=== PATIENT | female | born 1960 | race Caucasian/White ===

== ENCOUNTER 2024-11-09 12:38 | Outpatient (REF) | payer MEDICARE, SELFPAY ==
--- OUTSIDE RECORDS SUMMARY | 2020-01-03 20:00 | XMS_ITS | Continuity of Care Document ---
Author Organization [facility] Address [address] [address] [place] [address] Phone Care Team Providers Care Bereavement Counselor Name Role Phone TereElvira zayas OD Unavailable Unavailable Allergies, Adverse Reactions, Alerts Substance Reaction Status Criticality codeine Active No Information Medications Medication Instructions Dosage Effective Dates (start - stop) Status Comments baclofen 10 mg tablet Take 10 mg by mout h 3 times daily. - Active cyclobenzaprine 10 mg tablet Take 10 mg by mouth 3 times daily as needed for Muscle Spasms. - Active ergocalciferol (vitamin D2) 1,250 mcg (50,000 unit) capsule Take 50,000 Units by mouth once a week. - Active ibuprofen 400 mg tablet Take 400 mg by m outh every 6 hours as needed. - Active Procedures Procedure Date Comprehensive eye exam, new patient Determination of refractive state Advance Directives Directive Yes / No Effective Date File Name No Information Encounters Encounter Description Practice Location Reason(s) For Visit Diagnoses Date Provider Providers Copied on Encounter [facility], [address] [address], [place], [place], [id number], [place] tel:[phone] [facility] No Information Renea Felix. [address], [address], [place], [place], [id number], [place]. tel:[phone] Referring Provider: Elvira Meier, [address], [place], [address] . tel:[phone] [facility], [address] [address], [place], [place], [id number], tel:[phone] [facility] The patient is here for an ocular health exam (chief complaint) Examination of eyes and vision with abnormal findings Z01.01Bilater al nuclear sclerosis cataract H25.13Keratoc onjunct sicca, not specified as Sjogren's, bilateral H16.223Presby opia H52.4 Renea Felix. [address], [address], [facility], [place], [id number], . tel:[phone] Referring Provider: Elvira Meier, [address], [place], [address] . tel:[phone] Family History Family Member Type Diagnosis Age At Onset Problem (finding) No relevant family hist ory Payers Payer name Insurance type Covered republican ID Authoriza tion(s) No Information Social History Type Description Quantity Date Captured Comments Sex Female Smoking Status No Information Chief Complaint And Reason For Visit No Information Reason For Referral Reason For Referral No Information History Of Present Illness Encounter Date Complaint History Of Prese nt Illness The patient is here for an ocular health exam The patient is here for an ocular health exam. Patient states that her vision has been blurry in both eyes. She felt that is has gradually been getting worse over the past year. She felt that the vision got worse while on Hydroxychloroquine (was on it for 6 months) for arthritis. Patient states that she has trouble seeing up close with her current glasses, she states that she has to put OTC readers on over her glasses. Patient states that she has used clear eyes to help with dryness. Functional Status Date Functional Assessmen t No Information Instructions Date Instruction Additional Infor kallie - Released updated g lasses prescription. Related to Presbyopia H52.4 - Patient educated o n condition and its effect on oculo-visual comfort including irritation, tearing and vision fluctuation. This is a chronic condition and requires continued maintenance therapy. START: Lubricant eye drops 4 x day in both eyes (non-prescription: Refresh, Systane, Genteal, Soothe or TheraTears). Avoid redness-relief drops.START: warm compresses 1-2 x day for both eyes for 5-10 minutes. Related to Keratoconjunct sicca, not specified as Sjogren's, bilateral H16.223 - Patient counseled on findings. No treatment currently recommended due to visual acuity function level. Patient will monitor vision changes and contact us with any decrease in vision, will re-evaluate cataract on return visit. 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 Recommend eye exams with dilation and updating glasses as necessary. Related to Examination of eyes and vision with abnormal findings Z01.01 Assessments Type Assessment Date No Information Patient Care Teams Name Effective Dates (start - stop) Status Members No Information
--- OUTSIDE RECORDS SUMMARY | 2024-11-09 12:40 | XMS_ITS | Clinical Summary ---
Author Organization [facility] Address [address] [place] [address] Care Team Providers Care Production Supply Equipment Tender Name Role Phone Bria Call DO Primary Care Provider [phone] Allergies No known active allergies Medications Medication Sig Dispensed Refills Start Date End Date Status cyclobenzaprine (FLEXERIL) 10 MG tablet Take 1 tablet (10 mg total) by mouth daily. 0 Active atorvastatin (LIPITOR) tablet 40 mg Take 1 tablet (40 mg total) by mouth daily. 0 Active aspirin EC 81 MG tablet Take 1 tablet (81 mg total) by mouth daily. 0 Active gabapentin (NEURONTIN) 300 MG capsule Take 1 capsule (300 mg total) by mouth 2 (two) times a day. 0 Active ibuprofen 200 MG tablet Take 1 tablet (200 mg total) by mouth every 6 (six) hours as needed for pain. 0 Active Active Problems Problem Noted Date Diagnosed Date Thrombocytosis 08/06/2021 Social History Tobacco Use Types Packs/Day Years Used Date Smoking Tobacco: Never Assessed Sex and Gender Information Value Date Recorded Sex Assigned at Not on file Gender Identity Not on file Sexual Orientation Not on file Job Start Date Occupation Industry Not on file Not on file Not on file Last Filed Vital Signs Vital Sign Reading Time Taken Comments Blood Pressure 139/60 02/10/2024 8:59 AM EDT Pulse 75 02/10/2024 8:59 AM EDT Temperature 36.2 C (97.2 F) 02/10/2024 8:59 AM EDT Respiratory Rate - - Oxygen Saturation 95% 02/10/2024 8:59 AM EDT Inhaled Oxygen Concentration - - Weight 60.3 kg (133 lb) 02/10/2024 8:59 AM EDT Height 162.6 cm (5' 4 ) 02/10/2024 8:59 AM EDT Body Mass Index 22.83 02/10/2024 8:59 AM EDT Plan of Treatment Health Maintenance Due Date Last Done Comments Hepatitis C Screening 1960 Depression Screening 1972 BMI Counseling 1978 Preventative Health Evaluation 1978 Cervical Cancer Screening (Pap Smear) 1981 Colon Cancer Screening (Colonoscopy) 2005 Breast Cancer Screening (Mammogram) 2010 Shingrix-Zoster Vaccine (1 o f 2) 2010 COVID-19 Vaccine (3 - 2023-2 5 season) 2023 08/23/2020, 08/02/2020 Influenza Vaccine (#1) 2024 , 02/23/2022 DTap / Tdap / Td (2 - Td or Tdap) 02/24/2032 02/23/2022 RSV Adult > 60+ Yrs or (1 - 1-dose 75+ series) 11/26/2035 Pneumococcal Vaccine Aged Out 08/30/2022 No long er eligible based on patient's age to complete this topic Hepatitis B Vaccines Aged Out No long er eligible based on patient's age to complete this topic RSV Ped < 20 months Aged Out No longe r eligible based on patient's age to complete this topic Care Teams Production Supply Equipment Tender Relationship Specialty Start Date End Date Bria Call DO [address] [facility] [place] [address] PCP - General Internal Medicine 02/10/24
--- OUTSIDE RECORDS SUMMARY | 2024-11-09 12:40 | XMS_ITS ---
Author Name [facility] Organization Unknown Care Team Organization Name Specialty Phone Email Start Date End Da te [facility]ann She[facility] 04/26/20222023 [facility] Melec[facility] 02/23/20222023
--- NOTE | 2024-11-09 12:43 | EMG_ITS ---
Chief complaint: Left numbness versus 3rd digits, left-sided neck pain Noted atrophy on left APB. Reason for referral: Evaluate for Carpal Tunnel Syndrome Referred by: Regino LOWE Procedure done: Left upper extremity NCS/EMG Precautions and/or limitations: None The limb temperature was monitored continuously and remained between 32-36 degrees C during the performance of the NCS. Nerve Conduction Studies Anti Sensory Summary Table ?Stim Site NR Onset (ms) Norm Onset (ms) Peak (ms) Norm Peak (ms) O-P Amp (?V) Norm O-P Amp Site1 Site2 Delta-0 (ms) Dist (cm) Tex (m/s) Norm Tex (m/s) Left Median Anti Sensory (2nd Digit) Wrist NR <3.6 >10 Wrist 2nd Digit 14.0 Left Radial Anti Sensory (Thumb) Forearm ? 1.4 1.9 <3.1 32.5 Forearm Thumb 1.4 0.0 Left Ulnar Anti Sensory (5th Digit) Wrist ? 0.9 3.0 <3.7 25.5 >15.0 Wrist 5th Digit 0.9 14.0 156 Motor Summary Table ?Stim Site NR Onset (ms) Norm Onset (ms) O-P Amp (mV) Norm O-P Amp iAmp (mV) Amp (1st) (%) Site1 Site2 Delta-0 (ms) Dist (cm) Tex (m/s) Norm Tex (m/s) Left Median Motor (Abd Poll Brev) Wrist NR <3.9 >4.5 Elbow Wrist 0.0 >45 Elbow ? 8.6 1.1 1.4 Left Ulnar Motor (Abd Dig Minimi) Wrist ? 2.7 <3.0 5.7 >5 6.7 100.0 B Elbow Wrist 3.2 20.0 63 >45 B Elbow ? 5.9 4.7 5.7 82.5 A Elbow B Elbow 1.4 10.0 71 >45 A Elbow ? 7.3 5.0 6.4 87.7 EMG ?Side Muscle Nerve Root Ins Act Fibs Psw Amp Dur Poly Recrt Int Pat Comment Left FlexCarRad Median C6-7 Nml Nml Nml Nml Nml 0 Nml Complete Left Biceps Musculocut C5-6 Nml Nml Nml Nml Nml 0 Nml Complete Left Triceps Radial C6-7-8 Nml Nml Nml Nml Nml 0 Nml Complete Left Deltoid Axillary C5-6 Nml Nml Nml Nml Nml 0 Nml Complete Left Abd Poll Brev Median C8-T1 Incr 1+ 1+ Nml Nml 0 Nml Complete FINDINGS: Left median sensory and motor nerves showed absent response. All other nerves tested were within normal. Concentric needle EMG was performed in selected muscles of the left upper extremity. Study revealed signs of electric abnormalities as shown in the table above. Left APB showed increased insertional activity, PSWs and fibrillations. IMPRESSION: 1. This is an abnormal study. 2. There is electrodiagnostic evidence for left severe median neuropathy at the wrist, consistent with carpal tunnel syndrome. 3. There is no electrodiagnostic evidence for ulnar neuropathy, brachial plexopathy, or cervical radiculopathy. Thank you for your kind referral. Katey Florez MD, [place] Board Certified, [place] [employer] and [employer] (ABPMR) Board Certified, [place] Board of Electrodiagnostic Medicine (ABEM) [place]ODIN [id number] [facility]
== END 2024-11-09 12:39 | disposition home or self-care (01) ==
LOC: HO.NEURO 12:38
PROVIDERS: Visit Provider Physician Assistant
DX: G56.02 Carpal tunnel syndrome, left upper limb (principal)
CPT/HCPCS: 95886; 95909

== ENCOUNTER → 2024-11-09 12:43 | Outpatient (BNV) | payer MEDICARE, MEDICAID, SELFPAY | PROVIDERS: Visit Provider Physical Medicine & Rehabilitation | DX: G56.02 Carpal tunnel syndrome, left upper limb (principal) | CPT/HCPCS: 95886; 95909 ==